=== PATIENT | female | born 1985 | race Caucasian/White ===

== ENCOUNTER 2024-03-10 16:39 | Inpatient (IN) | payer OTHER ==
[2024-03-10] MEDS ORDERED: LABETALOL HCL 200 MG TABLET (FP) ONE (19:51)
[2024-03-10] MEDS: LABETALOL HCL 200 MG TABLET (FP) PO ONE (19:52)
[2024-03-10] MEDS: ELECTROLYTE-148 SOLN 1,000 ML IV SCH (20:00)
[2024-03-10] MEDS ORDERED: AMPICILLIN SODIUM 2 GM VIAL ONE (20:22)
[2024-03-10 20:24] LABS: BASO % 0.1 % (0-2.0); EOS % 0.3 % (0-4.5); HEMATOCRIT 38.6 % (32.4-45.2); HEMOGLOBIN 13.2 GM/dL (10.7-15.3); LYMPH % 20.8 % (8-40); MCH 32.5 pg (25.7-33.7); MCHC 34.1 g/dl (32.0-36.0); MEAN CELL VOLUME 95.4 fl (80-96); MEAN PLT VOLUME 9.5 fl (7.5-11.1); MONO % 3.6 % (3.8-10.2); NEUT % 75.2 % (42.8-82.8); PLATELET COUNT 230 10^3/uL (134-434); RBC 4.05 M/mm3 (3.60-5.2); RDW 14.1 % (11.6-15.6); WHITE BLOOD COUNT 12.2 K/mm3 (4.0-10.0)
[2024-03-10] MEDS: AMPICILLIN - 2 GM in SODIUM CHLORIDE 100 ML IVPB ONE (20:30)
[2024-03-10 20:32] LABS: POTASSIUM 3.9 mmol/L (3.5-5.1)
[2024-03-10 20:33] LABS: CALCIUM 9.1 mg/dL (8.5-10.1)
[2024-03-10 20:34] LABS: BLOOD UREA NITROGEN 9.5 mg/dL (7-18)
[2024-03-10 20:35] LABS: INR 0.88 (0.83-1.09)
[2024-03-10 20:37] LABS: CREATININE 0.5 mg/dL (0.55-1.3)
[2024-03-10 20:38] LABS: ACTIVATED PTT 26.6 SECONDS (25.2-36.5)
[2024-03-10 21:03] VITALS: BMI 33.5
[2024-03-10 21:27] LABS: HIV INTERPRETATION NEGATIVE (NEGATIVE)
[2024-03-10] MEDS ORDERED: OXYTOCIN 30 UNITS in 0.9% NS 30 UNIT/500 ML INFUS.BAG IVPB ONE (21:32)
[2024-03-10 21:45] LABS: RETICULOCYTES 1.58 % (0.5-1.5)
[2024-03-10] MEDS: OXYTOCIN 30 UNITS in 0.9% NS 30 UNIT/500 ML INFUS.BAG IVPB SCH (21:45)
[2024-03-10 21:54] LABS: URIC ACID 4.6 mg/dL (2.6-7.2)
[2024-03-10] MEDS: LABETALOL HCL 200 MG TABLET (FP) PO SCH (22:26)
[2024-03-11] MEDS ORDERED: AMPICILLIN SODIUM 1 GM VIAL ONE ×3 (00:31→08:33)
[2024-03-11] MEDS: AMPICILLIN - 1 GM in SODIUM CHLORIDE 100 ML IVPB SCH (00:35)
[2024-03-11] MEDS ORDERED: FENTANYL/BUPIVACAINE/NS/PF - PCEA - 50 ML DISP.SYRIN EP ONE ×2 (04:28→09:34)
[2024-03-11] MEDS ORDERED: BUPIVACAINE HCL/PF 0.25% (2.5MG/ML) 10 ML VIAL ONE (04:43)
[2024-03-11] MEDS ORDERED: FENTANYL CITRATE/PF 50 MCG/ML VIAL ONE (04:43)
[2024-03-11] MEDS: FENTANYL/BUPIVACAINE/NS/PF - PCEA - 50 ML DISP.SYRIN EP SCH (05:00)
[2024-03-11] MEDS ORDERED: NALOXONE HCL 0.4 MG/ML VIAL IVPUSH PRN (05:03)
[2024-03-11] MEDS ORDERED: OXYTOCIN 20 UNITS in 0.9% NS 20 UNIT/1,000 ML INFUS.BAG IV ONE (11:52)
[2024-03-11] MEDS: OXYTOCIN 20 UNITS in 0.9% NS 20 UNIT/1,000 ML INFUS.BAG IV SCH (12:20)
[2024-03-11 12:41] LABS: CORD BASE EXCESS -5.2 mmol/L (0-2); CORD HCO3 21.3 mmHg (20-29); CORD PCO2 44.6 mmHg (30-78); CORD pH 7.296 (7.14-7.44)
[2024-03-11 12:44] LABS: CORD HCO3 24.8 mmHg (20-29); CORD PCO2 68.4 mmHg (30-78); CORD pH 7.178 (7.14-7.44)
[2024-03-11] MEDS ORDERED: oxyCODONE HCL 5 MG TABLET PO PRN (12:45)
[2024-03-11] MEDS ORDERED: METHYLERGONOVINE MALEATE 0.2 MG/1 ML AMP IM PRN (12:45)
[2024-03-11] MEDS ORDERED: WITCH HAZEL 50% (TUCKS) 40 PAD/JAR PAD TP PRN (12:45)
[2024-03-11] MEDS ORDERED: BISACODYL 10 MG SUPP.RECT RC PRN (12:45)
[2024-03-11] MEDS: IBUPROFEN 600 MG TABLET (FP) PO PRN (15:17)
[2024-03-11] MEDS: ACETAMINOPHEN 325 MG TABLET (FP) PO PRN (19:36)
[2024-03-12 08:46] LABS: BASO % 0.1 % (0-2.0); EOS % 0.2 % (0-4.5); HEMATOCRIT 29.5 % (32.4-45.2); LYMPH % 11.2 % (8-40); MCH 32.8 pg (25.7-33.7); MEAN CELL VOLUME 96.5 fl (80-96); MEAN PLT VOLUME 9.1 fl (7.5-11.1); MONO % 3.5 % (3.8-10.2); PLATELET COUNT 175 10^3/uL (134-434); RBC 3.06 M/mm3 (3.60-5.2); RDW 13.8 % (11.6-15.6); WHITE BLOOD COUNT 14.8 K/mm3 (4.0-10.0)
[2024-03-12] MEDS: SENNOSIDES/DOCUSATE COMBO (SENNA PLUS) TABLET (UD) PO PRN (21:00)
[2024-03-13 06:36] VITALS: BP 125/77; PULSE 72; RESP 16; TEMP 98.4
[2024-03-13] MEDS: BENZOCAINE 20% 57 GM BOTTLE TP PRN (12:51)
[2024-03-13] MEDS: BENZOCAINE 28 GM HEMORRHOIDAL OINTMENT TP PRN (12:51)
== END 2024-03-13 13:57 | disposition home or self-care (01) | DRG 807 ==
LOC: JLDR 16:39 → J3W 03-11 14:55
PROVIDERS: ADMIT Obstetrics & Gynecology; ATTEND Obstetrics & Gynecology
PROC: 0W8NXZZ Division of Female Perineum, External Approach (ICD-10-PCS; principal; 2024-03-11)
PROC: 10E0XZZ Delivery of Products of Conception, External Approach (ICD-10-PCS; 2024-03-11)
DX: O48.0 Post-term pregnancy (principal); Z37.0 Single live birth; Z3A.40 40 weeks gestation of pregnancy; O13.4 Gestational [pregnancy-induced] hypertension without significant proteinuria, complicating childbirth; O42.92 Full-term premature rupture of membranes, unspecified as to length of time between rupture and onset of labor; O99.824 Streptococcus B carrier state complicating childbirth
CPT/HCPCS: 36415; 36600; 59409; 80048; 82803; 82977; 83010; 84450; 84460; 84550; 85025; 85032; 85045; 85610; 85730; 86780; 86850; 86900; 86901; 87389